=== PATIENT | male | born 1950 | race African-American/Black ===

== ENCOUNTER 2016-07-10 06:48 | Observation (INO) | payer OTHER ==
[2016-07-10] MEDS ORDERED: LIDOCAINE 1% 2 ML INJ ONE (07:12)
[2016-07-10] MEDS ORDERED: BUPIVACAINE/EPI 0.25% 30 ML SDV ONE (07:40)
[2016-07-10] MEDS ORDERED: LIDO/EPI 1% **Not for Epidural 20 ML MDV ONE (07:40)
[2016-07-10] MEDS ORDERED: LIDOCAINE 1% 5 ML SDV ID PRN (07:42)
[2016-07-10] MEDS ORDERED: LR 1,000 ML IV ONE (07:42)
[2016-07-10] MEDS ORDERED: PROPOFOL/EMULSION 500 MG/50 ML BOTTLE IV ONE (08:10)
[2016-07-10] MEDS ORDERED: fentaNYL 250 MCG/5 ML INJ ONE (08:10)
[2016-07-10] MEDS ORDERED: ceFAZolin 2 GM/DEXTROSE 100 ML IV ONE (08:30)
[2016-07-10] MEDS ORDERED: SCOPOLAMINE HYDROBROMIDE 1.5 MG PATCH TD ONE (08:50)
[2016-07-10] MEDS ORDERED: MIDAZOLAM 2 MG/2 ML VIAL ONE (08:50)
[2016-07-10] MEDS ORDERED: ROPIVACAINE HCL 20 MG/10 ML INJ EP ONE (09:10)
[2016-07-10] MEDS ORDERED: PROPOFOL 200 MG/20 ML VIAL ONE (12:43)
[2016-07-10] MEDS ORDERED: HYDROCOD/APAP 7.5/325 IN 15ML UDCUP PO PRN (13:02)
[2016-07-10] MEDS ORDERED: ONDANSETRON 4 MG/2 ML VIAL IVP PRN (13:02)
--- NOTE | 2016-07-10 13:08 | POSTOPPROG ---
Post Op Note Date of Operation: 07/10/16 Surgeon: Ingrid Mcmahon Cd Reactor Operator: Charlene Cortez Anesthesia: GET(General Endotracheal) Pre-op Diagnosis: right thyroid mass, KRISTEN Post-op Diagnosis: same Procedure: right thyroidectomy, tonsillectomy Inf/Abcess present in the surg proc area at time of surgery?: No EBL: 50-100 Complications: none Drains: Zane Mathews Specimen(s): right thryoid mass tonsils
[2016-07-10] MEDS ORDERED: METOPROLOL TARTRATE 5 MG/5 ML INJ ONE (13:22)
[2016-07-10] MEDS ORDERED: fentaNYL 100 MCG/2 ML INJ ONE (13:37)
--- NOTE | 2016-07-10 13:55 | GOP ---
[f rep st] OPERATIVE REPORT DATE OF OPERATION: 07/10/2016 SURGEON: Ingrid Mcmahon MD STAFF COUNSEL: Charlene Cortez for the thyroidectomy. ANESTHESIA: General endotracheal. PREOPERATIVE DIAGNOSIS: 1. Right thyroid mass. 2. Obstructive sleep apnea with tonsillar hypertrophy. POSTOPERATIVE DIAGNOSIS: 1. Right thyroid mass. 2. Obstructive sleep apnea with tonsillar hypertrophy. PROCEDURE PERFORMED: 1. Right thyroidectomy. 2. Tonsillectomy. FINDINGS: ESTIMATED BLOOD LOSS: 50 cc. INDICATIONS: A 66-year-old male who presents with an enlarging right thyroid mass; FNA is benign. He also has a left thyroid mass which has been stable in size, also FNA benign. The right mas has c ontinued to grow and quite symptomatic. Therefore, he has elected for removal of the right thyroid only, leaving the mass on the left side intact. Patient also with tonsillar hypertrophy, obstructiv e sleep apnea, and has elected for tonsillectomy. DESCRIPTION OF PROCEDURE: After informed consent, patient brought back to the operating room, place d in supine position. General endotracheal anesthesia with a NIM monitoring tube. The table was le ft in place, and a skin crease incision was planned between the sternal notch and the cricoid and in jected with 5 cc of 1% lidocaine with epinephrine. The patient was then prepped and draped in a adilene rile fashion. A 15 blade was used to make a skin incision down through subcutaneous tissue and plat ysmal plane. The subplatysmal flaps were raised. The median raphe was identified and transected fr om thyroid notch to sternal notch. A palpable, probably 2 cm mass on the left, and then on the righ t side, there was a very large mass. The strap muscles were retracted. The superior pole was very difficult to see. The incision had to be extended slightly. With continued dissection, the superior pole vessels were identified, and Lauren rmonic and clips were used to clip the superior pole vessels. The cricothyroid muscle was identifie d. Continued dissection along the superior pole and along the lateral aspect became difficult. The refore, attention was paid inferiorly. Using careful dissection along the thyroid and retracting th e thyroid out of the neck onto the skin allowed for further identification of the inferior thyroid v essels. These were also clamped and clipped and tied. The right thyroid lobe was so large and went suprasternal that the dissection needed to be carried outside the skin for better view, to avoid ma steven a very large incision. Continued blunt dissection was used to remove the attachments inferiorl y. The majority of the dissections were down bluntly to remove the attaching tissue. Identificatio n of the middle thyroid vein was done, and this was then clamped and tied. Bipolar was used to magaly ve connecting tissue to the thyroid, and at this point, we were able to continue to bluntly dissect all the way to the airway. At this point, the Harmonic was used to transect through the isthmus, and the very large thyroid spe cimen was able to be removed. Inspection of the wound revealed a small amount of bleeding. This wa s able to be controlled using bipolar. The recurrent laryngeal nerve was not able to be identified, but stimulation in the area set off the NIM monitor. Parathyroids were also not able to be specifi liseth identified. At this point, once final hemostasis was obtained, Surgicel was placed, and a #7 flat DANELLE. The strap muscles were reattached using 4-0 Vicryl. 4-0 Monocryl was used to close the sk in in a subcuticular fashion and Dermabond on the skin. The drain was brought out just lateral to t he incision. At this point, attention was paid to the tonsils. The table was rotated 90 degrees. The patient was then prepped and draped for a tonsillectomy. The McIvor was placed, and the right and left tonsils were removed using a Coblator. Hemostasis was ob tained. A total of 2 cc of Naropin was injected into bilateral tonsillar beds. Final hemostasis wa s obtained. An OG tube was used to suction out gastric contents. At this point, the patient was aw oken from anesthesia, extubated, transferred to PACU in stable condition. COMPLICATIONS: None. /[id number]/MODL
[2016-07-10] MEDS: D5W 1/2 NS W/ 20 KCl/L 1,000 ML IV SCH (15:02)
[2016-07-10 16:46] LABS: IONIZED CALCIUM 1.15 MMOL/L (1.12-1.30)
[2016-07-10] MEDS: OXYCODONE/APAP 5/325 TAB PO PRN (16:55)
[2016-07-10 23:22] LABS: IONIZED CALCIUM 1.13 MMOL/L (1.12-1.30)
[2016-07-11] MEDS: D5W 1/2 NS W/ 20 KCl/L 1,000 ML IV SCH (01:17)
[2016-07-11] MEDS: OXYCODONE/APAP 5/325 TAB PO PRN ×2 (01:20→07:55)
[2016-07-11] MEDS ORDERED: BACITRACIN OINTMENT 1 PACKET TP ONE (04:34)
[2016-07-11 04:35] VITALS: O2SAT 92
[2016-07-11 05:13] LABS: IONIZED CALCIUM 1.14 MMOL/L (1.12-1.30)
[2016-07-11] MEDS ORDERED: SILDENAFIL CITRATE 100 MG PO PRN (07:54)
[2016-07-11 08:21] VITALS: BP 125/77; PULSE 70; RESP 14; TEMP 98.7
--- NOTE | 2016-07-11 08:47 | GDS ---
[f rep st] DISCHARGE SUMMARY DIAGNOSES: 1. Right thyroid mass. 2. Sleep apnea. HOSPITAL COURSE: Patient was admitted on day of surgery. Patient underwent right hemithyroidectomy and tonsillectomy. Postoperatively the patient was monitored with a DANELLE drain in place, for drain o utput and sleep apnea. He was able to tolerate liquids, and pain was managed with oral pain medicat ion. The patient did have trouble with urinary retention,and was only able to urinate outputs of 50 to 100 cc at a time. Bladder scan confirmed additional 500 cc; therefore, on postop day 1 [address] [facility] [place], patient underwent a straight catheterization to empty his bladder, and continued to encourag e ambulation and hydration. The DANELLE drain had decreased output by the morning, therefore, this was r emoved. His voice was strong on postop day 1. He was ambulating. His neck incision was flat. No evidence of hematoma. Therefore, patient was discharged in the morning on postop day 1. DISCHARGE INSTRUCTIONS: He was advised to continue with ambulation and hydration. Should he contin ue to have trouble without return of normal urine output, then the patient was advised he will have to go to the emergency room for placement of a Christina catheter to stay in place for several days, and follow up with a urologist. PLAN: Discharge home in stable condition. MEDICATIONS: Patient to resume his medications, except aspirin and herbal supplements. He has a pr escription for pain medication. WOUND CARE: Patient is able to shower and just keep a bandage over the DANELLE drain site. DIET AND ACTIVITY RESTRICTIONS: All specifically laid out in his postop handouts, which include ton sillectomy diet and limited activity, with no strenuous activity or heavy lifting. FOLLOWUP: The patient has an appointment to follow up with me in 1 week. /[id number]/MODL
[2016-07-11] MEDS ORDERED: ALLOPURINOL 300 MG PO SCH (09:00)
[2016-07-11] MEDS ORDERED: LISINOPRIL 40 MG PO SCH (09:00)
[2016-07-11] MEDS ORDERED: LISINOPRIL 40 MG TAB PO SCH ×2 (09:00)
[2016-07-11] MEDS ORDERED: amLODIPine BESYLATE 5 MG TAB PO SCH ×2 (09:00)
[2016-07-11] MEDS ORDERED: ALLOPURINOL 300 MG TAB PO SCH ×2 (09:00)
[2016-07-11] MEDS ORDERED: AMLODIPINE BESYLATE 5 MG PO SCH (09:00)
== END 2016-07-11 12:01 | disposition home or self-care (01) ==
LOC: F3N 06:48 → F3E 14:31
PROVIDERS: ADMIT Otolaryngology; ATTEND Otolaryngology
PROC: 0CTPXZZ Resection of Tonsils, External Approach (ICD-10-PCS; principal; 2016-07-10 08:30)
PROC: 0GTH0ZZ Resection of Right Thyroid Gland Lobe, Open Approach (ICD-10-PCS; principal; 2016-07-10 08:30)
DX: E04.1 Nontoxic single thyroid nodule (principal); J35.1 Hypertrophy of tonsils; G47.33 Obstructive sleep apnea (adult) (pediatric)
CPT/HCPCS: 42826; 60220; G0378; J0690; J2250; J2704; J2795; J3010